=== PATIENT | male | born 1995 | race African-American/Black ===

== ENCOUNTER 2017-03-19 11:27 | Emergency (ER) | payer SELFPAY ==
[~2017-03-19] VITALS: Ht 190.5 cm; Wt 100.0 kg
[~2017-03-19 11:27] MED LIST: CEPH500C3 PO; HYDR-3533 PO; IBUP800T23 PO
[2017-03-19 11:28] VITALS: BP 156/80; PULSE 110; RESP 24; TEMP 97.7; O2SAT 99
--- NOTE | 2017-03-19 11:35 | PD ---
Physical Exam Time Seen by Provider: 11:34 Narrative 21 y/o male here for evaluation of swelling, redness, pain localized to the penis. Symptoms started 2 days ago. Denies d/c. Circumcised. Vital signs reviewed. Seen at triage desk, awaiting bed placement. Data Data Last Documented VS Vital Signs Date Time Temp Pulse Resp B/P Pulse Ox O2 Delivery O2 Flow Rate FiO2 03/19/17 11:28 97.7 110 24 156/80 99 Room Air [facility] Medical Record Reviewed: Yes Supervised Visit with HOA: Jacob Green March 19, 2017 11:35
--- NOTE | 2017-03-19 12:07 | PD ---
HPI Chief Complaint: Complaint Time Seen by Provider: 12:00 Travel History International Travel<30 days: No Contact w/Intl Traveler<30days: No Traveled to known affect area: No History of Present Illness HPI Patient is a 21-year-old male presenting to emergency department evaluation of lesions on his penis. Patient had unprotected sexual intercourse 3 days ago with his ex-girlfriend, he developed symptoms yesterday and states it feels as if it's burning. He denies any discharge or dysuria. He states that lymph node in his groin is swollen and tender. He denies any fever, chills, abdominal pain, chest pain, headaches. PFSH Past Medical History Medical History: Denies Significant Hx Immunizations Current: Yes Social History Alcohol Use: Yes Tobacco Use: No Substance Use: No Allergies-Medications (Allergen,Severity, Reaction): Coded Allergies: No Known Allergies (Verified , 06/17/16) Reported Meds & Prescriptions Reported Meds & Active Scripts Active Gabapentin 100 Mg Cap 100 Mg PO TID PRN 10 Days Acyclovir 800 Mg Tab 800 Mg PO 5 TIMES A DAY 7 Days Keflex (Cephalexin Monohydrate) 500 Mg Cap 500 Mg PO QID Ibuprofen 800 Mg Tab 800 Mg PO Q8HR PRN Lortab 5 mg/325 mg (Hydrocodone/Acetaminophen 5 mg/325 mg) 1 Tab 1 Tab PO Q6H PRN Review of Systems Except as stated in HPI: all other systems reviewed are Neg Genitourinary: No: Dysuria Skin: Positive Lesions Hematologic/Lymphatic: Positive: Lymph Node Enlargement Physical Exam Narrative GENERAL: Well-nourished, well-developed patient. SKIN: Focused skin assessment warm/dry. HEAD: Normocephalic. EYES: No scleral icterus. No injection or drainage. NECK: Supple, trachea midline. No JVD or lymphadenopathy. CARDIOVASCULAR: Regular rate and rhythm without murmurs, gallops, or rubs. RESPIRATORY: Breath sounds equal bilaterally. No accessory muscle use. GASTROINTESTINAL: Abdomen soft, non-tender, nondistended. MUSCULOSKELETAL: No cyanosis, or edema. GENITOURINARY: Circumcised. Testes descended bilaterally without evidence of rotation. Scattered 1-2 mm vesicular lesions on shaft of penis. Right inguinal lymphadenopathy, tender to palpation. No urethral discharge. BACK: Nontender without obvious deformity. No CVA tenderness. Data Data Last Documented VS Vital Signs Date Time Temp Pulse Resp B/P Pulse Ox O2 Delivery O2 Flow Rate FiO2 03/19/17 11:28 97.7 110 24 156/80 99 Room Air Orders Urinalysis - C+S If Indicated (03/19/17 12:02) Gc And Chlamydia Pcr (03/19/17 12:02) Azithromycin (Zithromax) (03/19/17 12:15) Ceftriaxone Inj (Rocephin Inj) (03/19/17 12:15) Lidocaine 1% Inj (50 Ml) (Xylocaine 1% I (03/19/17 12:15) Gabapentin (Neurontin) (03/19/17 12:15) Herpes Simplex Virus Culture (03/19/17 12:02) Hiv Antibody Screen (03/19/17 12:24) Hepatitis Profile (03/19/17 12:24) Rapid Plasmin Reagin Screen (03/19/17 12:24) Acyclovir (Zovirax) (03/19/17 13:00) Labs Laboratory Tests Test 03/19/17 13:00 Urine Color YELLOW Urine Turbidity CLEAR Urine pH 7.0 Urine Specific [place] 1.023 Urine Protein TRACE mg/dL Urine Glucose (UA) NEG mg/dL Urine Ketones NEG mg/dL Urine Occult Blood NEG Urine Nitrite NEG Urine Bilirubin NEG Urine Urobilinogen 4.0 MG/DL Urine Leukocyte Esterase NEG Urine RBC 1 /hpf Urine WBC 1 /hpf Urine Squamous Epithelial <1 /hpf Cells Urine Mucus FEW /lpf Microscopic Urinalysis Comment CULT NOT INDICATED MDM Medical Decision Making Medical Screen Exam Complete: Yes Emergency Medical Condition: Yes Interpretation(s) Vital Signs Date Time Temp Pulse Resp B/P Pulse Ox O2 Delivery O2 Flow Rate FiO2 03/19/17 11:28 97.7 110 24 156/80 99 Room Air Differential Diagnosis Lymphogranuloma some venereum versus herpes simplex type II versus syphilis versus chlamydia versus gonorrhea versus contact dermatitis versus other Narrative Course Patient is a 21-year-old male presenting to emergency lesions on his penis. Had unprotected sex 3 days ago developed symptoms yesterday. Physical examination is most consistent with herpes simplex type II. Patient was tested for chlamydia and gonorrhea, HIV, hepatitis panel was obtained. Patient was treated empirically for chlamydia and gonorrhea. He was given first dose of Cyclogyl here in the emergency department. He was given gabapentin for nerve pain. He was advised to follow-up with the health department or with his primary doctor. Patient was advised that the herpes virus can shed even if the lesions are present. He was advised to maintain safe sexual practices. Patient was further advised that he would be notified if pending test results return positive. He verbalized understanding of these instructions. Patient is stable for discharge. Diagnosis Primary Impression: Genital herpes Qualified Code: A60.01 - Herpes simplex infection of penis Referrals: [facility] Primary Care Physician Patient Instructions: General Instructions, Genital Herpes Simplex (ED), Safe Sex (ED), Sexually Transmitted Diseases (DC) Additional Instructions: Follow-up with a primary doctor Maintain safe sexual practices Herpesvirus can shed even when no lesions are present Return to emergency department new or worsening symptoms it is Med/Other Pt SpecificInfo: Prescription(s) given Scripts Gabapentin 100 Mg [id number] Mg PO TID PRN (PAIN SCALE 1 TO 10) 10 Days Ref 0 Prov:Kimberly Hu 03/19/17 Acyclovir 800 Mg [id number] Mg PO 5 TIMES A DAY 7 Days Ref 0 Prov:Kimberly Hu 03/19/17 Disposition: 01 DISCHARGE HOME Condition: Stable Kimberly Hu March 19, 2017 12:07
[2017-03-19] MEDS ORDERED: GABAPENTIN 100 MG CAP PO ONE (12:15)
[2017-03-19] MEDS ORDERED: cefTRIAXone 250 MG VIAL IM ONE (12:15)
[2017-03-19] MEDS ORDERED: AZITHROMYCIN 250 MG TAB PO ONE (12:15)
[2017-03-19] MEDS ORDERED: LIDOCAINE HCL 1% 50 ML VIAL XX ONE (12:15)
--- NOTE | 2017-03-19 12:41 | PD ---
Data Data Last Documented VS Vital Signs Date Time Temp Pulse Resp B/P Pulse Ox O2 Delivery O2 Flow Rate FiO2 03/19/17 11:28 97.7 110 24 156/80 99 Room Air Orders Urinalysis - C+S If Indicated (03/19/17 12:02) Gc And Chlamydia Pcr (03/19/17 12:02) Azithromycin (Zithromax) (03/19/17 12:15) Ceftriaxone Inj (Rocephin Inj) (03/19/17 12:15) Lidocaine 1% Inj (50 Ml) (Xylocaine 1% I (03/19/17 12:15) Gabapentin (Neurontin) (03/19/17 12:15) Herpes Simplex Virus Culture (03/19/17 12:02) Hiv Antibody Screen (03/19/17 12:24) Hepatitis Profile (03/19/17 12:24) Rapid Plasmin Reagin Screen (03/19/17 12:24) MDM Supervised Visit with HOA: Yes Narrative Course I, Dr. Sofia, have reviewed the advance practice practioner's documentation and am in agreement, met with the patient face to face, made the diagnosis, and the medical decision making was done by me. *My assessment and Findings: 21-year-old male here with lesions on the penis after unprotected sex 3 days ago. Describes it painful, burning. On exam he has vesicular type lesions along the penile shaft and the base of the penis with lymphadenopathy in the right inguinal region. No chancre or chancroid. No penile discharge. Strong suspicion for genital herpes, differential includes other STI not limited to gonorrhea, chlamydia, lymphogranuloma venereum , hepatitis, HIV, syphilis. The patient will be treated empirically pending hematology. Leslee Sofia MD March 19, 2017 12:41
[2017-03-19] MEDS ORDERED: ACYCLOVIR 800 MG TAB PO ONE (13:00)
[2017-03-19] MEDS ORDERED: GABA100C4 PO (13:07)
[2017-03-19] MEDS ORDERED: ACYC800T PO (13:07)
[2017-03-19 13:23] LABS: BLOOD, URINE NEG (NEG); COMMENT (UR) CULT NOT INDICATED; CULTURE IF INDICATED CULT NOT INDICATED; GLUCOSE,URINE NEG (NEG); KETONE, URINE NEG (NEG); MUCUS URINE FEW /lpf (OCC); NITRITE,URINE NEG (NEG); SQUAMOUS EPITHELIAL CELL URINE <1 /hpf (0-5); URINE COLOR YELLOW (YELLW/STRAW)
[2017-03-19 16:32] LABS: CHLAMYDIA PCR NOT DETECTED (NOT DETECT); NEISSERIA PCR NOT DETECTED (NOT DETECT)
[2017-03-23 11:10] LABS: RAPID PLASMA REAGIN SCREEN NON-REACTIVE (NON-REACTVE)
== END 2017-03-19 14:06 | disposition home or self-care (01) ==
LOC: NEPD 11:27
DX: A60.01 Herpesviral infection of penis (principal); R59.9 Enlarged lymph nodes, unspecified; Z79.899 Other long term (current) drug therapy
CPT/HCPCS: 80074; 81001; 86592; 86703; 87255; 87491; 87591; 96372; 99284; J0696